=== PATIENT | male | born 1960 | race African-American/Black ===

== ENCOUNTER 2017-06-28 22:16 | Emergency (ER) | payer OTHER ==
--- NOTE | 2017-06-28 22:28 | PD ---
HPI Chief Complaint: cardiac arrest Time Seen by Provider: 22:22 Travel History International Travel<30 days: No Contact w/Intl Traveler<30days: No Traveled to known affect area: No History of Present Illness HPI 56-year-old male brought in by ambulance from [facility] with CPR in progress for cardiac arrest. 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 Paramedics continued CPR, intubated the patient with a 7.5 [place] ET tube, and followed ACLS protocol. By the time the patient had arrived to the emergency department, paramedics had been performing CPR for approximately 50 minutes. They administered 8 doses of epi, 100 mg once of sodium bicarbonate, and Narcan. Upon arrival to the emergency department ACLS protocol was continued. ET tube placement was confirmed with bilateral breath sounds and color change capnometry. The patient was given another dose of epinephrine, 50 mg of sodium bicarbonate, and a dose of calcium chloride. Rhythm check showed asystole and no pulse. Bedside transthoracic cardiac ultrasound showed no cardiac activity. At this point CPR had been going on for over an hour. Resuscitation attempts were felt to be futile, and the patient was pronounced at 2220. [facility] Social History Tobacco Use: No (unknown) Substance Use: Yes Review of Systems ROS Limitations: Clinical Condition, Intubated, Unresponsive Physical Exam Narrative GENERAL: Well-developed, well-nourished, unresponsive, intubated SKIN: Focused skin assessment warm/dry. HEAD: Atraumatic. Normocephalic. EYES: Pupils fixed and dilated. ENT: No nasal bleeding or discharge. Endotracheal tube in place. NECK: Trachea midline. No JVD. CARDIOVASCULAR: Pulseless. CPR in progress. RESPIRATORY: No spontaneous respirations. ET tube in place with bilateral breath sounds with BVM. GASTROINTESTINAL: Abdomen soft, nondistended. MUSCULOSKELETAL: No obvious deformities. No clubbing. No cyanosis. No edema. NEUROLOGICAL: Obtunded. MDM Medical Decision Making Medical Screen Exam Complete: Yes Emergency Medical Condition: Yes Differential Diagnosis Cardiac arrest Narrative Course See history of present illness. Patient pronounced at 2220. Diagnosis Primary Impression: Cardiopulmonary arrest Disposition: 20 Condition: Jose Luis Fierro MD Jun 28, 2017 22:28
== END 2017-06-29 05:12 | disposition expired ==
LOC: NEPE 22:16 → NEPI 06-29 05:12
DX: I46.9 Cardiac arrest, cause unspecified (principal)
CPT/HCPCS: 92950